=== PATIENT | male | born 1990 | race Caucasian/White ===

== ENCOUNTER 2017-10-14 20:23 | Inpatient (IN) | payer SELFPAY ==
[~2017-10-14] VITALS: Ht 167.6 cm; Wt 60.0 kg
[2017-10-14] MEDS ORDERED: SODIUM CHLOR 0.9% 1000 ML INJ 1,000 ML IV ONE ×2 (21:00)
[2017-10-14] MEDS ORDERED: KETOROLAC TROMETHAMINE 30 MG/ML (IVP) VIAL IV PUSH ONE (21:00)
[2017-10-14 21:07] VITALS: BP 123/70; PULSE 85; RESP 16; TEMP 98.8; O2SAT 96
[2017-10-14] MEDS ORDERED: METOCLOPRAMIDE HCL 10 MG/2 ML VIAL IV PUSH ONE (21:15)
[2017-10-14] MEDS ORDERED: diphenhydrAMINE HCL 50 MG/ML VIAL IV PUSH ONE (21:15)
--- NOTE | 2017-10-14 21:18 | PD ---
HPI Chief Complaint: Abdominal Pain Time Seen by Provider: 20:55 Travel History International Travel<30 days: No Contact w/Intl Traveler<30days: No Traveled to known affect area: No History of Present Illness HPI 26-year-old male presents emergency department with complaints of nausea, vomiting, myalgias, arthralgias and general malaise. He states that he feels cramping all over his body. He has not vomited here recently but had vomiting earlier this afternoon. Symptoms are moderate. No alleviating factors. Exacerbated by working outside. PFSH Past Medical History Medical History: Denies Significant Hx Diminished Hearing: No Tetanus Vaccination: Unknown Past Surgical History Surgical History: No Previous Surgery Social History Alcohol Use: Yes Tobacco Use: Yes (Cigars) Substance Use: Yes (Marijuana) Allergies-Medications (Allergen,Severity, Reaction): Coded Allergies: No Known Allergies (Unverified , 10/14/17) Review of Systems General / Constitutional: No: Fever Eyes: No: Visual changes HENT: No: Headaches Cardiovascular: No: Chest Pain or Discomfort Respiratory: No: Shortness of Breath Gastrointestinal: Positive: Nausea, Vomiting, Abdominal Pain Genitourinary: No: Dysuria Musculoskeletal: Positive: Myalgias, Arthralgias, Cramping, Pain Skin: No Rash Neurologic: No: Weakness Psychiatric: No: Depression Endocrine: No: Polydipsia Hematologic/Lymphatic: No: Easy Bruising Physical Exam Narrative GENERAL: Well-developed, well-nourished in no apparent distress. Nontoxic appearing. HEAD: Normocephalic, atraumatic. EYES: Pupils equal round and reactive. Extraocular motions intact. No scleral icterus. No injection or drainage. ENT: Nose clear. Throat without erythema, tonsillar hypertrophy or exudate. Uvula midline. Airway patent. NECK: Trachea midline. Supple, nontender, moves head freely. No central bony tenderness or spasm. CARDIOVASCULAR: Regular rate and rhythm without murmurs, gallops, or rubs. RESPIRATORY: Clear to auscultation. Breath sounds equal bilaterally. No wheezes , rales, or rhonchi. GASTROINTESTINAL: Abdomen soft, non-tender, nondistended. No hepato-splenomegaly , or palpable masses. No guarding. EXTREMITIES: No clubbing, cyanosis, or edema. No joint tenderness. BACK: Nontender without deformity. No flank tenderness. NEUROLOGICAL: Awake, alert and oriented x 3 .Cranial nerves grossly intact. Motor and sensory grossly within normal limits. Normal speech. Data Data Last Documented VS Vital Signs Date Time Temp Pulse Resp B/P (MAP) Pulse Ox O2 Delivery O2 Flow Rate FiO2 10/14/17 21:07 98.8 85 16 123/70 (87) 96 Orders Orders Complete Blood Count With Diff (10/14/17 20:59) Comprehensive Metabolic Panel (10/14/17 20:59) Creatine Kinase (Cpk) (10/14/17 20:59) Urinalysis - C+S If Indicated (10/14/17 20:59) Influenzae A/B Antigen (10/14/17 20:59) Iv Access Insert/Monitor (10/14/17 20:59) Sodium Chlor 0.9% 1000 Ml Inj (Ns 1000 M (10/14/17 21:00) Ketorolac Inj (Toradol Inj) (10/14/17 21:00) Sodium Chlor 0.9% 1000 Ml Inj (Ns 1000 M (10/14/17 21:00) Diphenhydramine Inj (Benadryl Inj) (10/14/17 21:15) Metoclopramide Inj (Reglan Inj) (10/14/17 21:15) CKMB (10/14/17 21:15) CKMB% (10/14/17 21:15) Admit Order (Ed Use Only) (10/14/17 ) Vital Signs (Adult) Q4H (10/14/17 22:54) Diet Renal (10/15/17 Breakfast) Activity Oob With Assistance (10/14/17 22:54) Notify Dr: Other (10/14/17 22:54) Labs Laboratory Tests Test 10/14/17 21:15 White Blood Count 12.4 TH/MM3 Red Blood Count 5.61 MIL/MM3 Hemoglobin 17.5 GM/DL Hematocrit 50.7 % Mean Corpuscular Volume 90.4 FL Mean Corpuscular Hemoglobin 31.3 PG Mean Corpuscular Hemoglobin Concent 34.6 % Red Cell Distribution Width 12.5 % Platelet Count 375 TH/MM3 Mean Platelet Volume 7.6 FL Neutrophils (%) (Auto) 74.3 % Lymphocytes (%) (Auto) 10.7 % Monocytes (%) (Auto) 14.6 % Eosinophils (%) (Auto) 0.0 % Basophils (%) (Auto) 0.4 % Neutrophils # (Auto) 9.2 TH/MM3 Lymphocytes # (Auto) 1.3 TH/MM3 Monocytes # (Auto) 1.8 TH/MM3 Eosinophils # (Auto) 0.0 TH/MM3 Basophils # (Auto) 0.0 TH/MM3 CBC Comment DIFF FINAL Differential Comment Urine Color DARK-YELLOW Urine Turbidity HAZY Urine pH 5.0 Urine Specific [place] 1.021 Urine Protein 100 mg/dL Urine Glucose (UA) NEG mg/dL Urine Ketones TRACE mg/dL Urine Occult Blood MOD Urine Nitrite NEG Urine Bilirubin NEG Urine Urobilinogen 2.0 MG/DL Urine Leukocyte Esterase TRACE Urine RBC 9 /hpf Urine WBC 2 /hpf Urine Squamous Epithelial Cells 2 /hpf Urine Hyaline Casts 55 /lpf Urine Mucus FEW /lpf Microscopic Urinalysis Comment CULT NOT INDICATED Blood Urea Nitrogen 28 MG/DL Creatinine 3.03 MG/DL Random Glucose 102 MG/DL Total Protein 10.6 GM/DL Albumin 5.5 GM/DL Calcium Level 10.2 MG/DL Alkaline Phosphatase 116 U/L Aspartate Amino Transf (AST/SGOT) 29 U/L Alanine Aminotransferase (ALT/SGPT) 39 U/L Total Bilirubin 0.6 MG/DL Sodium Level 131 MEQ/L Potassium Level 4.9 MEQ/L Chloride Level 92 MEQ/L Carbon Dioxide Level 24.8 MEQ/L Anion Gap 14 MEQ/L Estimat Glomerular Filtration Rate 26 ML/MIN Total Creatine Kinase 409 U/L Creatine Kinase MB 2.5 NG/ML Creatine Kinase MB % 0.6 % [facility] Medical Decision Making Medical Screen Exam Complete: Yes Emergency Medical Condition: Yes Medical Record Reviewed: Yes Interpretation(s) Laboratory Tests Test 10/14/17 21:15 White Blood Count 12.4 TH/MM3 Red Blood Count 5.61 MIL/MM3 Hemoglobin 17.5 GM/DL Hematocrit 50.7 % Mean Corpuscular Volume 90.4 FL Mean Corpuscular Hemoglobin 31.3 PG Mean Corpuscular Hemoglobin Concent 34.6 % Red Cell Distribution Width 12.5 % Platelet Count 375 TH/MM3 Mean Platelet Volume 7.6 FL Neutrophils (%) (Auto) 74.3 % Lymphocytes (%) (Auto) 10.7 % Monocytes (%) (Auto) 14.6 % Eosinophils (%) (Auto) 0.0 % Basophils (%) (Auto) 0.4 % Neutrophils # (Auto) 9.2 TH/MM3 Lymphocytes # (Auto) 1.3 TH/MM3 Monocytes # (Auto) 1.8 TH/MM3 Eosinophils # (Auto) 0.0 TH/MM3 Basophils # (Auto) 0.0 TH/MM3 CBC Comment DIFF FINAL Differential Comment Urine Color DARK-YELLOW Urine Turbidity HAZY Urine pH 5.0 Urine Specific [place] 1.021 Urine Protein 100 mg/dL Urine Glucose (UA) NEG mg/dL Urine Ketones TRACE mg/dL Urine Occult Blood MOD Urine Nitrite NEG Urine Bilirubin NEG Urine Urobilinogen 2.0 MG/DL Urine Leukocyte Esterase TRACE Urine RBC 9 /hpf Urine WBC 2 /hpf Urine Squamous Epithelial Cells 2 /hpf Urine Hyaline Casts 55 /lpf Urine Mucus FEW /lpf Microscopic Urinalysis Comment CULT NOT INDICATED Blood Urea Nitrogen 28 MG/DL Creatinine 3.03 MG/DL Random Glucose 102 MG/DL Total Protein 10.6 GM/DL Albumin 5.5 GM/DL Calcium Level 10.2 MG/DL Alkaline Phosphatase 116 U/L Aspartate Amino Transf (AST/SGOT) 29 U/L Alanine Aminotransferase (ALT/SGPT) 39 U/L Total Bilirubin 0.6 MG/DL Sodium Level 131 MEQ/L Potassium Level 4.9 MEQ/L Chloride Level 92 MEQ/L Carbon Dioxide Level 24.8 MEQ/L Anion Gap 14 MEQ/L Estimat Glomerular Filtration Rate 26 ML/MIN Total Creatine Kinase 409 U/L Creatine Kinase MB 2.5 NG/ML Creatine Kinase MB % 0.6 % Differential Diagnosis Differential diagnosis: Influenza, viral process, dehydration, heat exhaustion, electrolyte abnormality, rhabdomyolysis Narrative Course IV access is obtained. Patient is given 2 L of normal saline bolus, Benadryl 50 mg IV, Reglan 10 mg IV, O2 sat monitoring as well as EKG monitoring. Routine laboratory tests including CBC, chemistry, CK and UA. Patient laboratory tests have been reviewed. Appears he has acute kidney injury. I have discussed the case with Dr. Knox who is agreed to admit the patient. He is aware of the laboratory findings and the patient's clinical history. Diagnosis Primary Impression: Acute kidney injury Additional Impression: Dehydration Condition: Stable Saul Villeda October 14, 2017 21:18
[2017-10-14 21:39] LABS: AUTOMATED NEUTROPHIL # 9.2 TH/MM3 (1.8-7.7); BASOPHIL % 0.4 % (0.0-2.0); HEMATOCRIT 50.7 % (39.0-51.0); HEMOGLOBIN 17.5 GM/DL (13.0-17.0); LYMPH % 10.7 % (9.0-44.0); LYMPHOCYTE # 1.3 TH/MM3 (1.0-4.8); MEAN CELL VOLUME 90.4 FL (80.0-100.0); MEAN CORPUSCULAR HEMOGLOBIN 31.3 PG (27.0-34.0); MEAN CORPUSCULAR HGB CONC 34.6 % (32.0-36.0); MEAN PLATELET VOLUME 7.6 FL (7.0-11.0); MONO % 14.6 % (0.0-8.0); MONOCYTE # 1.8 TH/MM3 (0-0.9); NEUT % 74.3 % (16.0-70.0); PLATELET COUNT 375 TH/MM3 (150-450); RED BLOOD COUNT 5.61 MIL/MM3 (4.50-5.90); RED CELL DISTRIBUTION WIDTH 12.5 % (11.6-17.2); WHITE BLOOD COUNT 12.4 TH/MM3 (4.0-11.0)
[2017-10-14 21:41] LABS: BLOOD, URINE MOD (NEG); GLUCOSE,URINE NEG (NEG); HYALINE CAST, URINE 55 /lpf (RARE); KETONE, URINE TRACE mg/dL (NEG); MUCUS URINE FEW /lpf (OCC); NITRITE,URINE NEG (NEG); SQUAMOUS EPITHELIAL CELL URINE 2 /hpf (0-5); URINE COLOR DARK-YELLOW (YELLW/STRAW); URINE LEUKOCYTE ESTERASE TRACE (NEG)
[2017-10-14 21:53] LABS: BILIRUBIN, URINE NEG (NEG)
[2017-10-14 21:58] LABS: ALBUMIN 5.5 GM/DL (3.4-5.0); AST (GOT) 29 U/L (15-37); BICARBONATE 24.8 MEQ/L (21.0-32.0); BLOOD UREA NITROGEN 28 MG/DL (7-18); CALCIUM 10.2 MG/DL (8.5-10.1); CHLORIDE 92 MEQ/L (98-107); CREATININE 3.03 MG/DL (0.60-1.30); GLOMERULAR FILTRATION RATE 26 ML/MIN (>89); GLUCOSE,RANDOM 102 MG/DL (74-106); SODIUM (NA) 131 MEQ/L (136-145)
[2017-10-14 22:01] LABS: ALKALINE PHOSPHATASE 116 U/L (45-117); ALT (GPT) 39 U/L (12-78); TOTAL BILIRUBIN ADULT 0.6 MG/DL (0.2-1.0); TOTAL PROTEIN 10.6 GM/DL (6.4-8.2)
[2017-10-14] MEDS ORDERED: SODIUM CHLORIDE 0.9% FLUSH 10 ML FLUSH IV FLUSH PRN (23:15)
[2017-10-14] MEDS ORDERED: SENNOSIDES 8.6 MG TAB PO PRN (23:15)
[2017-10-14] MEDS ORDERED: ONDANSETRON ODT 4 MG TAB PO PRN (23:15)
[2017-10-14] MEDS ORDERED: BISACODYL 10 MG SUPP RECTAL PRN (23:15)
[2017-10-14] MEDS ORDERED: NALOXONE HCL 0.4 MG/ML AMP IV PUSH PRN (23:15)
[2017-10-14] MEDS ORDERED: MAGNESIUM HYDROXIDE SUSP 30 ML CUP PO PRN (23:15)
[2017-10-14] MEDS ORDERED: ACETAMINOPHEN 325 MG TAB PO PRN (23:15)
[2017-10-14] MEDS ORDERED: LACTULOSE SYRUP 20 GM/30 ML CUP PO PRN (23:15)
[2017-10-15] VITALS (8 sets, daily range): BP systolic 100–123; BP diastolic 57–70; PULSE 57–68; RESP 14–20; TEMP 98.5–98.9; O2SAT 98–100
--- NOTE | 2017-10-15 00:23 | HHI.HP ---
HPI Service [facility] Hospitalists Primary Care Physician No Primary Care Physician Admission Diagnosis ACUTE KIDNEY INJURY, DEHYDRATION Diagnoses: Chief Complaint: body cramps Travel History International Travel<30 Days: No Contact w/Intl Traveler <30 Da: No Traveled to Known Affected Are: No History of Present Illness 26-year-old male minimal Ukrainian speaking with no medical history presents emergency department with complaints of nausea, vomiting, muscle aches and general malaise. He is complaining of cramping all over his body with associated nausea and vomiting. He states he was working outside today and did not drink much fluid. When he did drink fluid he would just vomit. Denies any chest pain, sob, fever or chills. Denies any dysuria. Stratus translation was not available due to poor connection, translation provided by staff. Review of Systems Except as stated in HPI: all other systems reviewed are Neg Past Family Social History Past Medical History Patient denies any medical history Past Surgical History Patient denies any surgical history Reported Medications Allergies: Coded Allergies: No Known Allergies (Unverified , 10/14/17) Active Ordered Medications Current Medications Medications (Trade) Dose Ordered Sig/Carisa Route Start Time Stop Time Status Last Admin (Zofran Odt) 4 mg Q6H PRN PO 10/14/17 23:15 Sodium Chloride 1,000 ml @ 100 mls/hr Q10H IV 10/14/17 23:03 (NS Flush) 2 ml UNSCH PRN IV FLUSH 10/14/17 23:15 (NS Flush) 2 ml BID IV FLUSH 10/15/17 09:00 (Tylenol) 650 mg Q4H PRN PO 10/14/17 23:15 (Heparin Inj) 5,000 units Q12H SQ 10/14/17 23:15 (Narcan Inj) 0.4 mg UNSCH PRN IV PUSH 10/14/17 23:15 (Milk Of Magnesia Liq) 30 ml Q12H PRN PO 10/14/17 23:15 (Senokot) 17.2 mg Q12H PRN PO 5/23/18 23:15 (Dulcolax Supp) 10 mg DAILY PRN RECTAL 10/14/17 23:15 (Lactulose Liq) 30 ml DAILY PRN PO 10/14/17 23:15 Family History Patient denies any family history Social History Tobacco use: Cigars Alcohol use: occasionally Physical Exam Vital Signs Vital Signs Date Time Temp Pulse Resp B/P (MAP) Pulse Ox O2 Delivery O2 Flow Rate FiO2 10/14/17 21:07 98.8 85 16 123/70 (87) 96 Physical Exam GENERAL: This is a well-nourished, well-developed patient, in no apparent distress. SKIN: No rashes, ecchymoses or lesions. Cool and dry. HEAD: Atraumatic. Normocephalic. No temporal or scalp tenderness. EYES: Pupils equal round and reactive. CARDIOVASCULAR: Regular rate and rhythm without murmurs, gallops, or rubs. RESPIRATORY: Clear to auscultation. Breath sounds equal bilaterally. No wheezes , rales, or rhonchi. GASTROINTESTINAL: Abdomen soft, non-tender, nondistended. No hepato-splenomegaly , or palpable masses. No guarding. MUSCULOSKELETAL: Extremities without clubbing, cyanosis, or edema. No joint tenderness, effusion, or edema noted. No calf tenderness. NEUROLOGICAL: Awake and alert. Motor and sensory grossly within normal limits. Normal speech. Laboratory Laboratory Tests Test 10/14/17 21:15 White Blood Count 12.4 Red Blood Count 5.61 Hemoglobin 17.5 Hematocrit 50.7 Mean Corpuscular Volume 90.4 Mean Corpuscular Hemoglobin 31.3 Mean Corpuscular Hemoglobin Concent 34.6 Red Cell Distribution Width 12.5 Platelet Count 375 Mean Platelet Volume 7.6 Neutrophils (%) (Auto) 74.3 Lymphocytes (%) (Auto) 10.7 Monocytes (%) (Auto) 14.6 Eosinophils (%) (Auto) 0.0 Basophils (%) (Auto) 0.4 Neutrophils # (Auto) 9.2 Lymphocytes # (Auto) 1.3 Monocytes # (Auto) 1.8 Eosinophils # (Auto) 0.0 Basophils # (Auto) 0.0 CBC Comment DIFF FINAL Differential Comment Urine Color DARK-YELLOW Urine Turbidity HAZY Urine pH 5.0 Urine Specific [place] 1.021 Urine Protein 100 Urine Glucose (UA) NEG Urine Ketones TRACE Urine Occult Blood MOD Urine Nitrite NEG Urine Bilirubin NEG Urine Urobilinogen 2.0 Urine Leukocyte Esterase TRACE Urine RBC 9 Urine WBC 2 Urine Squamous Epithelial Cells 2 Urine Hyaline Casts 55 Urine Mucus FEW Microscopic Urinalysis Comment CULT NOT INDICATED Blood Urea Nitrogen 28 Creatinine 3.03 Random Glucose 102 Total Protein 10.6 Albumin 5.5 Calcium Level 10.2 Alkaline Phosphatase 116 Aspartate Amino Transf (AST/SGOT) 29 Alanine Aminotransferase (ALT/SGPT) 39 Total Bilirubin 0.6 Sodium Level 131 Potassium Level 4.9 Chloride Level 92 Carbon Dioxide Level 24.8 Anion Gap 14 Estimat Glomerular Filtration Rate 26 Total Creatine Kinase 409 Creatine Kinase MB 2.5 Creatine Kinase MB % 0.6 Date/Time Source Procedure Growth Status 10/14/17 21:15 Nasal Aspirate Influenza Types A,B Antigen (HOWARD) - Final NEGATIVE FOR FLU A AND B ANTIGEN.... Complete Result Diagram: 10/14/17211410/14/172114 Caprini VTE Risk Assessment Caprini VTE Risk Assessment: No/Low Risk (score <= 1) Caprini Risk Assessment Model Point Value = 1 Point Value = 2 Point Value = 3 Point Value = 5 Age 41-60 Minor surgery BMI > 25 kg/m2 Swollen legs Varicose veins or History of unexplained or recurrent spontaneous Oral contraceptives or hormone replacement Sepsis (< 1 month) Serious lung disease, including pneumonia (< 1 month) Abnormal pulmonary function Acute myocardial infarction Congestive heart failure (< 1 month) History of inflammatory bowel disease Medical patient at bed rest Age 61-74 Arthroscopic surgery Major open surgery (> 45 min) Laparoscopic surgery (> 45 min) Malignancy Confined to bed (> 72 hours) Immobilizing plaster cast Central venous access Age >= 75 History of VTE Family history of VTE Factor V Leiden Prothrombin [id number] Lupus anticoagulant Anticardiolipin antibodies Elevated serum homocysteine Heparin-induced thrombocytopenia Other congenital or acquired thrombophilia Stroke (< 1 month) Elective arthroplasty Hip, pelvis, or leg fracture Acute spinal cord injury (< 1 month) Prophylaxis Regimen Total Risk Factor Score Risk Level Prophylaxis Regimen 0-1 Low Early ambulation 2 Moderate Order ONE of the following: *Sequential Compression Device (SCD) *Heparin 5000 units SQ BID 3-4 Higher Order ONE of the following medications: *Heparin 5000 units SQ TID *Enoxaparin/Lovenox 40 mg SQ daily (WT < 150 kg, CrCl > 30 mL/min) *Enoxaparin/Lovenox 30 mg SQ daily (WT < 150 kg, CrCl > 10-29 mL/min) *Enoxaparin/Lovenox 30 mg SQ BID (WT < 150 kg, CrCl > 30 mL/min) AND/OR *Sequential Compression Device (SCD) 5 or more Highest Order ONE of the following medications: *Heparin 5000 units SQ TID (Preferred with Epidurals) *Enoxaparin/Lovenox 40 mg SQ daily (WT < 150 kg, CrCl > 30 mL/min) *Enoxaparin/Lovenox 30 mg SQ daily (WT < 150 kg, CrCl > 10-29 mL/min) *Enoxaparin/Lovenox 30 mg SQ BID (WT < 150 kg, CrCl > 30 mL/min) AND *Sequential Compression Device (SCD) Assessment and Plan Problem List: (1) Rhabdomyolysis ICD Code: M62.82 - Rhabdomyolysis (2) Acute kidney injury ICD Code: N17.9 - Acute kidney failure, unspecified Status: Acute Assessment and Plan 26-year-old male minimal Ukrainian speaking with no medical history presents emergency department with complaints of nausea, vomiting, muscle aches and general malaise. Acute renal injury with underlining Rhabdomyolysis, creatine 3.0, cpk 409 -IVF for hydration -Trend creatine, serial CPK -Monitor telemetry -Antiemetics as needed DVT prophylaxis: SCDs Discussed Condition With Patient and RN Physician Certification 2 Midnight Certification Type: Admission for Inpatient Services Order for Inpatient Services The services are ordered in accordance with Medicare regulations or non- Medicare payer requirements, as applicable. In the case of services not specified as inpatient-only, they are appropriately provided as inpatient services in accordance with the 2-midnight benchmark. Estimated LOS (days): 2 days is the estimated time the patient will need to remain in the hospital, assuming treatment plan goals are met and no additional complications. Post-Hospital Plan: Vandana Smith October 15, 2017 00:23
[2017-10-15] MEDS: SODIUM CHLOR 0.9% 1000 ML INJ 1,000 ML IV SCH ×4 (00:35→21:30)
[2017-10-15] MEDS: HEPARIN SODIUM - SQ 10,000 UNITS/ML VIAL SQ SCH ×3 (00:36→23:48)
[2017-10-15 06:02] LABS: AUTOMATED NEUTROPHIL # 4.1 TH/MM3 (1.8-7.7); BASOPHIL % 0.4 % (0.0-2.0); EOSINOPHIL # 0.1 TH/MM3 (0-0.4); EOSINOPHIL % 0.8 % (0.0-4.0); HEMATOCRIT 42.4 % (39.0-51.0); HEMOGLOBIN 14.4 GM/DL (13.0-17.0); LYMPH % 30.9 % (9.0-44.0); LYMPHOCYTE # 2.6 TH/MM3 (1.0-4.8); MEAN CELL VOLUME 92.2 FL (80.0-100.0); MEAN CORPUSCULAR HEMOGLOBIN 31.4 PG (27.0-34.0); MEAN CORPUSCULAR HGB CONC 34.1 % (32.0-36.0); MEAN PLATELET VOLUME 7.7 FL (7.0-11.0); MONO % 18.7 % (0.0-8.0); MONOCYTE # 1.5 TH/MM3 (0-0.9); NEUT % 49.2 % (16.0-70.0); PLATELET COUNT 298 TH/MM3 (150-450); RED CELL DISTRIBUTION WIDTH 12.1 % (11.6-17.2); WHITE BLOOD COUNT 8.3 TH/MM3 (4.0-11.0)
[2017-10-15 06:27] LABS: BICARBONATE 27.3 MEQ/L (21.0-32.0); CALCIUM 8.2 MG/DL (8.5-10.1); CREATININE 1.82 MG/DL (0.60-1.30)
[2017-10-15] MEDS: SODIUM CHLORIDE 0.9% FLUSH 10 ML FLUSH IV FLUSH SCH ×2 (09:41→21:00)
--- NOTE | 2017-10-15 14:36 | HHI.PR ---
Addendum to Inpatient Note Addendum Reason: Additional Documentation Additional Information Patient seen today. Lying in bed, awake, alert, no acute distress. Says he feels better than yesterday. Renal function is improving. Continue IV hydration. Patient counseled on the importance of drinking at least 4-5 bottles of water daily, additionally more if sweating and working outside. Anticipate discharge on 10/16. Aquilino Giles MD October 15, 2017 14:35
[2017-10-16] VITALS: BP 122/79; PULSE 57; PULSE 59; RESP 18; TEMP 98; O2SAT 99
[2017-10-16 04:00] VITALS: BP 114/74; PULSE 53; RESP 20; TEMP 98.3; O2SAT 99
[2017-10-16 08:47] VITALS: BP 103/64; PULSE 56; RESP 16; TEMP 98; O2SAT 99
[2017-10-16] MEDS: SODIUM CHLORIDE 0.9% FLUSH 10 ML FLUSH IV FLUSH SCH (09:00)
[2017-10-16 09:39] LABS: BICARBONATE 24.3 MEQ/L (21.0-32.0); CALCIUM 8.9 MG/DL (8.5-10.1); CREATININE 0.91 MG/DL (0.60-1.30)
[2017-10-16] MEDS: HEPARIN SODIUM - SQ 10,000 UNITS/ML VIAL SQ SCH (11:54)
[2017-10-16 12:44] VITALS: BP 113/71; PULSE 62; RESP 18; TEMP 98.6; O2SAT 99
[2017-10-16] MEDS: SODIUM CHLOR 0.9% 1000 ML INJ 1,000 ML IV SCH (15:48)
[2017-10-16 16:00] VITALS: BP 115/78; PULSE 64; RESP 18; TEMP 98.5; O2SAT 99
--- NOTE | 2017-10-16 16:23 | HHI.DCPOC ---
Discharge Care Plan Diagnosis: (1) Acute kidney injury (2) Rhabdomyolysis (3) Dehydration Goals to Promote Your Health * To prevent worsening of your condition and complications * To maintain your health at the optimal level Directions to Meet Your Goals Take your medications as prescribed Follow your dietary instruction Follow activity as directed Keep your appointments as scheduled Take your immunizations and boosters as scheduled If your symptoms worsen call your PCP, if no PCP go to Urgent Care Center or Emergency Room Smoking is Dangerous to Your Health. Avoid second hand smoke Call the 24-hour hour crisis hotline for domestic abuse at Alexandr Dowling MD October 16, 2017 16:23
--- NOTE | 2017-10-16 16:26 | HHI.DS ---
Discharge Summary Admission Date October 14, 2017 at 22:57 Discharge Date: October 16, 2017 Admitting Diagnosis ACUTE KIDNEY INJURY, DEHYDRATION (1) Rhabdomyolysis ICD Code: M62.82 - Rhabdomyolysis Diagnosis: Principal Status: Resolved (2) Acute kidney injury ICD Code: N17.9 - Acute kidney failure, unspecified Diagnosis: Principal Status: Resolved Procedures none Brief History - From Admission 26-year-old male minimal Yi speaking with no medical history presents emergency department with complaints of nausea, vomiting, muscle aches and general malaise. He is complaining of cramping all over his body with associated nausea and vomiting. He states he was working outside today and did not drink much fluid. When he did drink fluid he would just vomit. Denies any chest pain, sob, fever or chills. Denies any dysuria. Stratus translation was not available due to poor connection, translation provided by staff. CBC/BMP: 10/15/17 0432 10/16/17 0838 Significant Findings Laboratory Tests Test 10/14/17 21:15 10/15/17 04:32 10/16/17 08:38 White Blood Count 12.4 TH/MM3 (4.0-11.0) Hemoglobin 17.5 GM/DL (13.0-17.0) Neutrophils (%) (Auto) 74.3 % (16.0-70.0) Monocytes (%) (Auto) 14.6 % (0.0-8.0) 18.7 % (0.0-8.0) Neutrophils # (Auto) 9.2 TH/MM3 (1.8-7.7) Monocytes # (Auto) 1.8 TH/MM3 (0-0.9) 1.5 TH/MM3 (0-0.9) Urine Color DARK-YELLOW (YELLW/STRAW) Urine Turbidity HAZY (CLEAR) Urine Protein 100 mg/dL (NEG-TRACE) Urine Ketones TRACE mg/dL (NEG) Urine Occult Blood MOD (NEG) Urine Leukocyte Esterase TRACE (NEG) Urine RBC 9 /hpf (0-3) Urine Mucus FEW /lpf (OCC) Blood Urea Nitrogen 28 MG/DL (7-18) 29 MG/DL (7-18) Creatinine 3.03 MG/DL (0.60-1.30) 1.82 MG/DL (0.60-1.30) Total Protein 10.6 GM/DL (6.4-8.2) Albumin 5.5 GM/DL (3.4-5.0) Calcium Level 10.2 MG/DL (8.5-10.1) 8.2 MG/DL (8.5-10.1) Sodium Level 131 MEQ/L (136-145) Chloride Level 92 MEQ/L (98-107) 108 MEQ/L (98-107) Estimat Glomerular Filtration Rate 26 ML/MIN (>89) 46 ML/MIN (>89) Total Creatine Kinase 409 U/L (39-308) 437 U/L (39-308) Pt update on day of discharge The patient denies chest pain, shortness of breath. Denies fevers or chills. Hospital Course The patient was diagnosed with rhabdomyolysis and acute kidney injury. Treated with IV fluids. Patient also had mild hyponatremia with a sodium of 131 which improved after normal saline administration. Creatinine on admission was 3.03 which trended down to 0.9 on day of discharge. Urinalysis was obtained and negative. Patient also was noted to have mild leukocytosis which was likely secondary to dehydration and reactive to stress. WBC trended down to 8.3 on . The patient was advised to avoid dehydration and to drink plenty of fluids when he is walking on hot weather or under the sun. Pt Condition on Discharge: Good Discharge Disposition: Discharge Home Discharge Time: <= 30 minutes Discharge Instructions DIET: Follow Instructions for: As Tolerated, No Restrictions Activities you can perform: Regular-No Restrictions Follow up Referrals: PCP Follow-up - 4 Weeks Alexandr Dowling MD October 16, 2017 16:26
== END 2017-10-16 18:34 | disposition home or self-care (01) | DRG 683 ==
LOC: NEPD 20:23 → NEDA 22:57 → NEDH 10-15 02:57 → N05B 10-15 13:22
PROVIDERS: ADMIT Hospitalist; ATTEND Hospitalist
DX: N17.9 Acute kidney failure, unspecified (principal); M62.82 Rhabdomyolysis; F17.290 Nicotine dependence, other tobacco product, uncomplicated; E86.0 Dehydration
CPT/HCPCS: 80048; 80053; 81001; 82550; 82552; 85025; 87804; 96361; 96374; 96375; J1200; J1644; J1885; J2765; J7030